=== PATIENT | male | born 1985 | race Caucasian/White ===

== ENCOUNTER 2023-12-04 23:18 | Emergency (ER) | payer OTHER, SELFPAY ==
[2023-12-04 23:20] VITALS: BP 132/94
--- NOTE | 2023-12-05 00:45 | ED.GENMED ---
History of Present Illness
General
Chief Complaint: Heart Rate Problem
Source: patient
Exam Limitations: none
Time Seen by Provider: 12/05/23 00:20
Travel History
Have you had any contact with someone who has COVID-19?: No
Do you have any symptoms of coronavirus? Fever > 100 degrees, chills, cough, shortness of breath, sore throat, loss of taste or smell, muscle aches, or headache?: No
History of Present Illness
History of Present Illness:
See MDM
Past History
Past History
ED Past Medical History: Arrthythmia (palpitations/tachy) and Other (chronic muscle spasm from Lyme's disease)
ED Past Surgical History: None
Social History
Tobacco: Non-smoker
Alcohol: Occasional
Personal:
Living: with family
Employment: Employed
Family History
Family History: Other (Noncontributory)
Phy Exam
Physical Exam
Physical Exam:
See MDM
Course
Orders/Labs/Results
Orders:
Orders
12/04/23 23:24
Electrocardiogram (*1) Urgent
Reason for Study: Palpitations
EKG- Treatment ONCE
12/05/23 00:56
Complete Blood Count/With Diff Urgent
Comprehensive Metabolic Panel Urgent
Magnesium Urgent
Abnormal Lab Results
12/05/23
00:56
MPV 10.7 H fL
(7.4-10.4)
Abs Immat Gran (auto) 0.1 H 10^3/uL
(0-0.05)
Immature Gran % 0.7 H %
(0-0.5)
Glucose 108 H mg/dl
(70-99)
12/05/23 00:56
12/05/23 00:56
Vital Signs
Initial and Last Documented VS:
Initial Vital Signs
Temp Pulse Resp BP Pulse Ox
97.8 F 100 22 132/94 100
12/04/23 23:20 12/04/23 23:20 12/04/23 23:20 12/04/23 23:20 12/04/23 23:20
Last Documented Vital Signs
Temp Pulse Resp BP Pulse Ox
97.8 F 100 22 111/84 95
12/04/23 23:20 12/04/23 23:20 12/04/23 23:20 12/05/23 01:00 12/05/23 01:00
MDM/Problems Addressed
Differential Diagnosis Includes:
HPI and MDM Narrative:
38-year-old male presenting with palpitations. This occurred while he was sitting on the couch. This is not unusual for the patient. Patient states he has been doing this for years and has since followed up with cardiology. He was prescribed
propranolol which she has not yet started. He has had a stress test and an echocardiogram which she states are both negative. Mother at bedside. Both mother and patient acknowledging that there has been more stress recently.
His sole blacker sent him to the emergency department to get an EKG. EKG within normal limits.
I discussed the importance of starting propranolol and following up with his sole blacker. Will obtain basic blood work but discussed likely negative workup. Patient acknowledged
Physical exam
General: Well appearing and non-toxic
HEENT: protecting airway
Neck: appears supple
CV: No evidence of cyanosis. Regular rate and rhythm
Resp: No accessory muscle use. Lungs clear
Abd: Non-distended
Extremities: No deformities
Neuro: alert
Psych: Normal affect
Skin: Intact
Problems Addressed including Acute and Chronic Conditions affecting care:
1. Palpitations
Acuity: acute
Prognosis: stable
Details: Discussed the possibility of an abnormal rhythm such as A-fib. Patient currently in sinus rhythm. Symptoms have improved. Discussed taking his propranolol
Updates
Differential Diagnosis (but not limited to): A-fib, sinus rhythm, SVT, anxiety
Testing considered: D-dimer but no clinical signs of DVT
Drug therapy (if applicable): OTC meds, please see d/c instruction regarding Rx drugs
Amount and/or Complexity of Data Reviewed
Clinical info obtained from: Patient
External data reviewed: N/A
Labs I independently reviewed (but not limited to): Electrolytes within normal limits
Radiology: N/A
Pulse Ox: not hypoxic
EKG independently reviewed: Normal sinus rhythm, normal axis, no STEMI
X Ray Developer: N/A
Critical Care: N/A
Risk of Complication:
Social Determinants of health: Good social support
Discussed with other providers: N/A
Escalation of Care includes Admit/Obs: After being observed in the Emergency Department, pt stable for discharge.
Occasional wrong word or 'sound a like' substitutions may have occurred due to the inherent limitations of voice recognition software. Read the chart carefully and recognize, using context, where substitutions have occurred.
*Critical Care Note
Total Time (30-74mins, 75-104mins- exclusive of procedures): Not Applicable
ED Attending Note
-
Portions of this chart may have been created with voice recognition software.� Occasional wrong word or��sound alike� substitutions may have occurred due to the inherent limitations of voice recognition software.
Discharge Plan
Departure
Patient Disposition: Home (Routine Discharge)
Date of Disposition: 12/05/23
Time of Disposition: 01:27
Patient with high blood pressure during this ER visit?: No
Discharge Problem:
Palpitations
Instructions: Palpitations (DC)
Prescriptions:
No Action
ondansetron 4 MG tablet,disintegrating
4 mg PO QIDPRN PRN (Reason: nausea/vomiting) Qty: 20 0RF
Referrals:
NONE,* [Family Provider] -
Activity Restrictions/Additional Instructions:
As we discussed, please start the propranolol and follow-up with your sole blacker.
Interventions
Interventions:
*Risk Screen - Suicide Last Done: 12/04/23 23:20
*General Assessment Last Done: 12/05/23 01:00
*Neglect/Abuse Screening Last Done: 12/04/23 23:20
*ED COVID-19 Vaccine History Last Done: 12/05/23 01:00
ED- Cardiac Assessment Last Done: 12/05/23 01:00
ED- Pulmonary Assessment Last Done: 12/05/23 01:00
[2023-12-05 00:46] VITALS: BP 117/82
[2023-12-05 01:00] VITALS: BP 111/84; BMI 27.1
[2023-12-05 01:01] LABS: % Basophils 0.7 % (0-2); % Eosinophils 3.3 % (0-6); % Immature Granulocytes 0.7 % (0-0.5); % Lymphocytes 34.3 % (20.5-51.1); % Monocytes 8.2 % (1.7-9.3); % Neutrophils 52.8 % (42.2-75.2); Absolute Basophils 0.1 10^3/uL (0-0.2); Absolute Eosinophils 0.2 10^3/uL (0-0.7); Absolute Immature Granulocytes 0.1 10^3/uL (0-0.05); Absolute Lymphocytes 2.5 10^3/uL (1.2-3.4); Absolute Monocytes 0.6 10^3/uL (0.1-0.6); Absolute Neutrophils 3.8 10^3/uL (1.4-6.5); Hematocrit 41.6 % (39.0-52.0); Hemoglobin 15.2 g/dL (13.0-18.0); Mean Corp Hgb Conc. 36.5 g/dL (33.0-37.0); Mean Corpuscular Hgb 29.5 pg (27.0-31.0); Mean Corpuscular Volume 80.6 fL (80.0-94.0); Mean Platelet Volume 10.7 fL (7.4-10.4); Nucleated Red Blood Cells % 0 % (-); Platelet Count 210 10^3/uL (130-400); Red Blood Cell Count 5.16 10^6/uL (4.70-6.10); Red Cell Dist. Width 12.2 % (11.5-14.5); White Blood Cell Count 7.2 10^3/uL (4.8-10.8)
[2023-12-05 01:24] LABS: ALT (SGPT) 24 U/L (0-50); AST (SGOT) 22 U/L (17-59); Albumin 4.1 g/dl (3.5-5.0); Alkaline Phosphatase 47 U/L (38-126); Blood Urea Nitrogen 16 mg/dl (9-20); Calcium 9.4 mg/dl (8.4-10.2); Carbon Dioxide 27 mmol/L (22-30); Chloride 104 mmol/L (98-107); Estimated Creatinine Clearance 115 ml/min; Glucose 108 mg/dl (70-99); Magnesium 1.9 mg/dl (1.6-2.3); Potassium 4.1 mmol/L (3.5-5.1); Sodium 135 mmol/L (135-145); Total Bilirubin 0.9 mg/dl (0.2-1.3); Total Protein 6.6 g/dl (6.3-8.2); eGFR > 60.00
== END 2023-12-05 01:35 | disposition home or self-care (01) ==
LOC: EMR 23:18
PROVIDERS: EMERGENCY PHYSICIAN Student in an Organized Health Care Education/Training Program
DX: R00.2 Palpitations (principal)
CPT/HCPCS: 99283; 80053; 83735; 85025; 93005

== ENCOUNTER 2024-02-27 16:30 | Emergency (ER) | payer OTHER, SELFPAY ==
[2024-02-27 16:33] VITALS: BP 123/79
[2024-02-27 16:49] LABS: % Basophils 0.7 % (0-2); % Eosinophils 4.7 % (0-6); % Immature Granulocytes 0.7 % (0-0.5); % Lymphocytes 30.4 % (20.5-51.1); % Monocytes 7.2 % (1.7-9.3); % Neutrophils 56.3 % (42.2-75.2); Absolute Basophils 0.1 10^3/uL (0-0.2); Absolute Eosinophils 0.4 10^3/uL (0-0.7); Absolute Immature Granulocytes 0.1 10^3/uL (0-0.05); Absolute Lymphocytes 2.3 10^3/uL (1.2-3.4); Absolute Monocytes 0.6 10^3/uL (0.1-0.6); Absolute Neutrophils 4.3 10^3/uL (1.4-6.5); Hematocrit 43.2 % (39.0-52.0); Hemoglobin 15.5 g/dL (13.0-18.0); Mean Corp Hgb Conc. 35.9 g/dL (33.0-37.0); Mean Corpuscular Hgb 29.9 pg (27.0-31.0); Mean Corpuscular Volume 83.2 fL (80.0-94.0); Mean Platelet Volume 11.2 fL (7.4-10.4); Nucleated Red Blood Cells % 0 % (-); Platelet Count 205 10^3/uL (130-400); Red Blood Cell Count 5.19 10^6/uL (4.70-6.10); Red Cell Dist. Width 12.8 % (11.5-14.5); White Blood Cell Count 7.7 10^3/uL (4.8-10.8)
[2024-02-27 17:02] LABS: ALT (SGPT) 24 U/L (0-50); AST (SGOT) 26 U/L (17-59); Albumin 4.3 g/dl (3.5-5.0); Alkaline Phosphatase 54 U/L (38-126); Blood Urea Nitrogen 17 mg/dl (9-20); Calcium 9.4 mg/dl (8.4-10.2); Carbon Dioxide 29 mmol/L (22-30); Chloride 106 mmol/L (98-107); Glucose 93 mg/dl (70-99); Potassium 3.9 mmol/L (3.5-5.1); Sodium 137 mmol/L (135-145); Total Bilirubin 0.5 mg/dl (0.2-1.3); Total Protein 6.8 g/dl (6.3-8.2); eGFR > 60.00
[2024-02-27 17:14] LABS: Troponin I < 0.012 ng/ml
--- NOTE | 2024-02-27 17:54 | ED.GENMED ---
History of Present Illness
General
Chief Complaint: Heart Rate Problem
Source: patient
Exam Limitations: none
Time Seen by Provider: 02/27/24 17:35
Travel History
Have you had any contact with someone who has COVID-19?: No
Do you have any symptoms of coronavirus? Fever > 100 degrees, chills, cough, shortness of breath, sore throat, loss of taste or smell, muscle aches, or headache?: No
History of Present Illness
History of Present Illness:
38-year-old male otherwise healthy presents with sudden onset of palpitations rapid heart rate lightheadedness while he was sitting in the car as a passenger today. No chest pain or fever. He was wearing a home monitor for about 14 days just took
it off and send it in for recording. He has been seen cardiology for this. He at one point was prescribed metoprolol but admits he has not been using it. It was prescribed as needed and he felt has hasn't needed it. He denies leg swelling or
calf pain.
Past History
Past History
ED Past Medical History: Arrthythmia (palpitations/tachy) and Other (chronic muscle spasm from Lyme's disease)
ED Past Surgical History: None
Social History
Tobacco: Non-smoker
Alcohol: Occasional
Personal:
Living: with family
Employment: Employed
Family History
Family History: Other (Noncontributory)
Phy Exam
Physical Exam
Physical Exam:
General: Well-appearing male no acute respiratory distress
HEENT: Normocephalic atraumatic neck is supple
Heart: Regular rate and rhythm no murmurs
Lungs: Clear no wheeze or rales
Extremities: No cyanosis or calf tenderness
Course
Orders/Labs/Results
Orders:
Orders
02/27/24 16:37
Electrocardiogram (*1) Urgent
Reason for Study: Tachycardia
EKG- Treatment ONCE
02/27/24 16:43
CMP [Comprehensive Metabolic Panel] Urgent
Complete Blood Count/With Diff Urgent
TSH Reflex To Free T4 Urgent
Comment: ADD ON
Troponin I Urgent
02/27/24 17:53
Add On- LAB Urgent
Tests Added?: tsh reflex to t4
Abnormal Lab Results
02/27/24
16:43
MPV 11.2 H fL
(7.4-10.4)
Abs Immat Gran (auto) 0.1 H 10^3/uL
(0-0.05)
Immature Gran % 0.7 H %
(0-0.5)
02/27/24 16:43
02/27/24 16:43
Vital Signs
Initial and Last Documented VS:
Initial Vital Signs
Temp Pulse Resp BP Pulse Ox
98.4 F 78 18 123/79 100
02/27/24 16:33 02/27/24 16:33 02/27/24 16:33 02/27/24 16:33 02/27/24 16:33
Last Documented Vital Signs
Temp Pulse Resp BP Pulse Ox
98.4 F 85 15 123/79 100
02/27/24 16:33 02/27/24 18:30 02/27/24 18:30 02/27/24 16:33 02/27/24 16:33
MDM/Problems Addressed
Differential Diagnosis Includes:
Palpitations. Consider arrhythmia electrolyte abnormality thyroid disorder
Will check labs. EKG here shows sinus rhythm without ischemic changes. Patient was seen by cardiology in the room here. At this point patient not feeling his palpitations.
*Critical Care Note
Total Time (30-74mins, 75-104mins- exclusive of procedures): Not Applicable
Update Note
Update Note:
TSH normal. No arrhythmias noted on monitor. Patient will be advised to follow-up with his fur dresser. He will be advised to take his beta-paula that was prescribed. Stable for discharge
ED Attending Note
-
Portions of this chart may have been created with voice recognition software.� Occasional wrong word or��sound alike� substitutions may have occurred due to the inherent limitations of voice recognition software.
Discharge Plan
Departure
Patient Disposition: Home (Routine Discharge)
Date of Disposition: 02/27/24
Time of Disposition: 19:21
Patient with high blood pressure during this ER visit?: No
Discharge Problem:
Palpitations
Instructions: Palpitations (DC)
Prescriptions:
No Action
ondansetron 4 MG tablet,disintegrating
4 mg PO QIDPRN PRN (Reason: nausea/vomiting) Qty: 20 0RF
Referrals:
NONE,* [Family Provider] -
Activity Restrictions/Additional Instructions:
Please start your beta-puala as prescribed. Return for worsening symptoms otherwise follow-up with your fur dresser
Interventions
Interventions:
*Risk Screen - Suicide Last Done: 02/27/24 17:21
*General Assessment Last Done: 02/27/24 17:21
*Neglect/Abuse Screening Last Done: 02/27/24 17:21
ED- Fall Risk Assessment Last Done: 02/27/24 17:21
*ED COVID-19 Vaccine History Last Done: 02/27/24 17:21
ED- Cardiac Assessment Last Done: 02/27/24 17:21
ED- Pulmonary Assessment Last Done: 02/27/24 17:21
Discharge Date and Time
Print Language: [place]
[2024-02-27 18:49] LABS: TSH Reflex To Free T4 0.48 uIU/ml (0.47-4.68)
== END 2024-02-27 19:58 | disposition home or self-care (01) ==
LOC: EMR 16:30
PROVIDERS: Emergency Medicine; EMERGENCY PHYSICIAN Emergency Medicine
DX: R00.2 Palpitations (principal)
CPT/HCPCS: 99283; 80053; 84443; 84484; 85025; 93005

== ENCOUNTER 2024-03-27 14:20 | Emergency (ER) | payer OTHER, SELFPAY ==
[2024-03-27 14:30] VITALS: BP 116/80
[2024-03-27 14:47] LABS: % Eosinophils 8.7 % (0-6); % Immature Granulocytes 0.7 % (0-0.5); % Lymphocytes 31.3 % (20.5-51.1); % Monocytes 9.1 % (1.7-9.3); % Neutrophils 49.2 % (42.2-75.2); Absolute Basophils 0.1 10^3/uL (0-0.2); Absolute Eosinophils 0.6 10^3/uL (0-0.7); Absolute Immature Granulocytes 0.1 10^3/uL (0-0.05); Absolute Lymphocytes 2.3 10^3/uL (1.2-3.4); Absolute Monocytes 0.7 10^3/uL (0.1-0.6); Absolute Neutrophils 3.6 10^3/uL (1.4-6.5); Hemoglobin 16.1 g/dL (13.0-18.0); Mean Corpuscular Hgb 29.3 pg (27.0-31.0); Mean Corpuscular Volume 83.8 fL (80.0-94.0); Mean Platelet Volume 11.5 fL (7.4-10.4); Nucleated Red Blood Cells % 0 % (-); Platelet Count 201 10^3/uL (130-400); Red Blood Cell Count 5.49 10^6/uL (4.70-6.10); Red Cell Dist. Width 12.2 % (11.5-14.5); White Blood Cell Count 7.2 10^3/uL (4.8-10.8)
[2024-03-27 15:04] LABS: ALT (SGPT) 42 U/L (0-50); AST (SGOT) 29 U/L (17-59); Albumin 4.5 g/dl (3.5-5.0); Alkaline Phosphatase 54 U/L (38-126); Blood Urea Nitrogen 11 mg/dl (9-20); Calcium 9.8 mg/dl (8.4-10.2); Carbon Dioxide 27 mmol/L (22-30); Chloride 103 mmol/L (98-107); Glucose 105 mg/dl (70-99); Potassium 4.5 mmol/L (3.5-5.1); Sodium 137 mmol/L (135-145); Total Protein 7.1 g/dl (6.3-8.2); eGFR > 60.00
[2024-03-27 15:14] LABS: Troponin I < 0.012 ng/ml
[2024-03-27 17:13] VITALS: BP 111/98; BP 118/79; BP 125/96; PULSE 76; PULSE 81; PULSE 93
[2024-03-27 17:19] VITALS: BMI 26.9
--- NOTE | 2024-03-27 18:08 | ED.GENMED ---
History of Present Illness
General
Chief Complaint: Heart Rate Problem
Source: patient and family
Time Seen by Provider: 03/27/24 16:51
Travel History
Have you had any contact with someone who has COVID-19?: No
Do you have any symptoms of coronavirus? Fever > 100 degrees, chills, cough, shortness of breath, sore throat, loss of taste or smell, muscle aches, or headache?: No
History of Present Illness
History of Present Illness:
this is a 39yo male who presents with palpitations. the pt has been dealing with this for more than 1 month. Patient is seen cardiology. 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 Patient states he has been checking his heart rate
frequently on his watch and his phone jose. He states sometimes heart rate gets up to 130. He does present strips on his phone but his heart rate is only about 100. Patient currently denies any symptoms. He states that today his symptoms
persisted. He does reportedly have a history of Lyme's. He was offered a cath for EP evaluation but is debating on it. He does note that he frequently gets PVCs. He also had a Holter monitor but does not know the results.
Past History
Past History
ED Past Medical History: Arrthythmia (palpitations/tachy) and Other (chronic muscle spasm from Lyme's disease)
ED Past Surgical History: None
Social History
Tobacco: Non-smoker
Alcohol: Occasional
Personal:
Living: with family
Employment: Employed
Family History
Family History: Other (Noncontributory)
Phy Exam
Physical Exam
Physical Exam:
CONSTITUTIONAL Patient alert and oriented to person, place and time. Well-appearing. Vital signs reviewed.
HEAD atraumatic, normocephalic.
EYES eyelids normal to inspection, Pupils equally round and reactive to light, Extraocular muscles intact, Conjunctiva normal, Sclera normal.
NECK normal range of motion, Trachea midline, no jugular venous distention.
RESPIRATORY CHEST No respiratory distress noted, Chest expansion equal, Bilateral breath sounds clear.
CARDIOVASCULAR regular rate and rhythm, Heart sounds normal.
BACK normal inspection, no obvious deformities
UPPER EXTREMITY range of motion normal, Motor strength normal, no cyanosis, no edema.
LOWER EXTREMITY range of motion normal, Motor strength normal, no cyanosis, no edema.
NEURO Speech normal, No focal motor deficits, [place] coma scale 15, Memory normal, Cranial Nerves intact to screening exam.
SKIN skin warm, dry, and normal in color.
PSYCHIATRIC patient oriented to person place and time, Normal affect.
Course
Orders/Labs/Results
Orders:
Orders
03/27/24
Electrocardiogram (*1) Stat
Comment: DONE EMR
03/27/24 14:24
EKG with chest pain [ECG as needed] As Directed
ECG as needed for:: Chest Pain
03/27/24 14:40
Complete Blood Count/With Diff Urgent
Comprehensive Metabolic Panel Urgent
Troponin I Urgent
Abnormal Lab Results
03/27/24
14:40
MPV 11.5 H fL
(7.4-10.4)
Abs Immat Gran (auto) 0.1 H 10^3/uL
(0-0.05)
Absolute Monos (auto) 0.7 H 10^3/uL
(0.1-0.6)
Immature Gran % 0.7 H %
(0-0.5)
Eosinophils % 8.7 H %
(0-6)
Glucose 105 H mg/dl
(70-99)
03/27/24 14:40
03/27/24 14:40
Vital Signs
Initial and Last Documented VS:
Initial Vital Signs
Temp Pulse Resp BP Pulse Ox
98 F 81 18 116/80 100
03/27/24 14:30 03/27/24 14:30 03/27/24 14:30 03/27/24 14:30 03/27/24 14:30
Last Documented Vital Signs
Temp Pulse Resp BP Pulse Ox
98 F 81 18 116/80 98
03/27/24 14:30 03/27/24 14:30 03/27/24 14:30 03/27/24 14:30 03/27/24 17:00
MDM/Problems Addressed
MDM/Problems Addressed:
Palpitations
*Pulse Oximetry
Patient hypoxic: no
*EKG
Interpreted by ED Provider?: Yes
Interpretation: normal
Rate: normal
Rhythm: sinus
[place]: normal axis
QRS Pattern: normal QRS
Ischemia: no ischemia
*Pipelines Manager Interpretation
Rate: normal
Interpretation: normal
Rhythm: sinus
*Critical Care Note
Total Time (30-74mins, 75-104mins- exclusive of procedures): Not Applicable
Data Reviewed
Source: patient and family
Prescriptions/Medications Considered But Not Given:
considered Beta paula but nsr on tele
Patient Management
Escalation/DeEscalation of care consider admission/obs:
pt appears well. pt is hyper concerned about his palpitations but is unable to produce anything that shows any concerning arrhythmias. Occasional PVCs. Is being followed by electrophysiology. Okay for discharge
ED Attending Note
-
Portions of this chart may have been created with voice recognition software.� Occasional wrong word or��sound alike� substitutions may have occurred due to the inherent limitations of voice recognition software.
Discharge Plan
Departure
Patient Disposition: Home (Routine Discharge)
Date of Disposition: 03/27/24
Time of Disposition: 18:09
Patient with high blood pressure during this ER visit?: No
Discharge Problem:
Palpitations
Instructions: Palpitations (DC)
Prescriptions:
No Action
propranolol 20 mg Tablet
20 mg PO QPM
Boswellia Zyme
1 tab PO DAILY
Curcumin
1 tab PO DAILY
vitamin D3-vitamin K2
62.6 mcg PO DAILY
Referrals:
Paige Moran MD [Family Provider] -
Activity Restrictions/Additional Instructions:
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 Return immediately for passing out episode, chest pain, shortness of breath or any other concerns.
Interventions
Interventions:
*Risk Screen - Suicide Last Done: 03/27/24 17:17
*General Assessment Last Done: 03/27/24 17:17
*Neglect/Abuse Screening Last Done: 03/27/24 17:17
ED- Fall Risk Assessment Last Done: 03/27/24 18:36
*ED COVID-19 Vaccine History Last Done: 03/27/24 17:17
*Nursing Disposition Last Done: 03/27/24 18:36
ED- Cardiac Assessment Last Done: 03/27/24 17:00
ED- Pulmonary Assessment Last Done: 03/27/24 17:00
Discharge Date and Time
Discharge Date/Time: 03/27/24 18:36
Print Language: [id number]
== END 2024-03-27 18:36 | disposition home or self-care (01) ==
LOC: EMR 14:20
PROVIDERS: Emergency Medicine; EMERGENCY PHYSICIAN Emergency Medicine; FAMILY PHYSICIAN Internal Medicine Cardiovascular Disease
DX: R00.2 Palpitations (principal)
CPT/HCPCS: 99283; 80053; 84484; 85025; 93005

== ENCOUNTER → 2024-04-04 13:12 | Outpatient (REF) | payer OTHER, SELFPAY | LOC: RCS 13:12 | PROVIDERS: ATTENDING PHYSICIAN Internal Medicine Cardiovascular Disease; FAMILY PHYSICIAN Family Medicine | DX: R07.9 Chest pain, unspecified (principal) | CPT/HCPCS: 93017 ==

== ENCOUNTER 2024-04-04 16:37 | Emergency (ER) | payer OTHER, SELFPAY ==
[2024-04-04 16:38] VITALS: BP 126/91
[2024-04-04 17:05] LABS: % Basophils 0.8 % (0-2); % Eosinophils 4.1 % (0-6); % Immature Granulocytes 0.6 % (0-0.5); % Lymphocytes 28.4 % (20.5-51.1); % Monocytes 6.5 % (1.7-9.3); % Neutrophils 59.6 % (42.2-75.2); Absolute Basophils 0.1 10^3/uL (0-0.2); Absolute Eosinophils 0.4 10^3/uL (0-0.7); Absolute Immature Granulocytes 0.1 10^3/uL (0-0.05); Absolute Lymphocytes 2.5 10^3/uL (1.2-3.4); Absolute Monocytes 0.6 10^3/uL (0.1-0.6); Absolute Neutrophils 5.3 10^3/uL (1.4-6.5); Hematocrit 41.9 % (39.0-52.0); Hemoglobin 15.7 g/dL (13.0-18.0); Mean Corp Hgb Conc. 37.5 g/dL (33.0-37.0); Mean Corpuscular Hgb 29.8 pg (27.0-31.0); Mean Corpuscular Volume 79.7 fL (80.0-94.0); Mean Platelet Volume 10.9 fL (7.4-10.4); Nucleated Red Blood Cells % 0 % (-); Platelet Count 226 10^3/uL (130-400); Red Blood Cell Count 5.26 10^6/uL (4.70-6.10); White Blood Cell Count 8.8 10^3/uL (4.8-10.8)
[2024-04-04 17:15] VITALS: BP 124/87
[2024-04-04 17:18] LABS: AST (SGOT) 20 U/L (17-59); Albumin 4.5 g/dl (3.5-5.0); Blood Urea Nitrogen 14 mg/dl (9-20); Carbon Dioxide 23 mmol/L (22-30); Glucose 97 mg/dl (70-99); Potassium 3.9 mmol/L (3.5-5.1); Total Bilirubin 1.4 mg/dl (0.2-1.3); Total Protein 6.9 g/dl (6.3-8.2); eGFR > 60.00
[2024-04-04 17:26] LABS: ALT (SGPT) 18 U/L (0-50); Alkaline Phosphatase 53 U/L (38-126)
[2024-04-04 17:29] LABS: Troponin I < 0.012 ng/ml
[2024-04-04 17:39] LABS: Chloride 104 mmol/L (98-107); Sodium 137 mmol/L (135-145)
[2024-04-04 18:00] VITALS: BP 111/74
--- NOTE | 2024-04-04 18:35 | ED.GENMED ---
History of Present Illness
General
Chief Complaint: Heart Rate Problem
Source: patient, records and spouse
Time Seen by Provider: 04/04/24 18:18
Travel History
Have you had any contact with someone who has COVID-19?: No
Do you have any symptoms of coronavirus? Fever > 100 degrees, chills, cough, shortness of breath, sore throat, loss of taste or smell, muscle aches, or headache?: No
History of Present Illness
History of Present Illness:
39-year-old male with past medical history of tachyarrhythmia presenting to the emergency department for evaluation of sudden onset palpitations that occurred while he was outside working in his yard similar to multiple previous episodes however
patient states today his heart rate went up as high as 190 which is the highest its ever been. He has been worked up by electrophysiology and was recommended to have an ablation procedure which was scheduled for this coming week however patient
canceled it because he was concerned about the procedure itself. He had a stress test today and is scheduled for an echocardiogram as well next week and states the stress went off without any issues although did note his heart rate stayed around
120 bpm for a while after the test. He states that he takes propranolol 40 mg daily. Notes symptoms seem to be worse when going from sitting or laying to standing. Denies any syncopal episodes. Presently asymptomatic.
Past History
Past History
ED Past Medical History: Arrthythmia (palpitations/tachy) and Other (chronic muscle spasm from Lyme's disease)
ED Past Surgical History: None
Social History
Tobacco: Non-smoker
Alcohol: Occasional
Drug: None
Personal:
Living: with family
Employment: Employed
Family History
Family History: Other (Noncontributory)
Review of Systems
Review of Systems
All Other Systems: ROS reviewed and negative except as documented in HPI and ROS
Phy Exam
Physical Exam
Physical Exam:
GENERAL: Alert , in no apparent distress
EYE: conjunctiva clear
NECK: Supple
ENT: o/p clr, mmm.
CARDIAC: Regular rate and rhythm
LUNGS: Clear breath sounds bilaterally, no acute respiratory distress, no wheezes/rales/rhonchi
NEUROLOGICAL: Alert and oriented
SKIN: Warm and dry, skin intact.
MUSCULOSKELETAL: well perfused.
PSYCH: Normal and appropriate interaction.
Scores
Heart Failure Risk
Heart Failure Risk Score: Not Applicable
Heart Score for Chest Pain Patients
STEMI patient?: Not applicable
Withdrawal Assessment of Alcohol
Withdrawal Assessment Completed?: Not applicable
Course
Orders/Labs/Results
Orders:
Orders
04/04/24 16:37
EKG [Electrocardiogram (*1)] Urgent
Reason for Study: Palpitations
04/04/24 16:38
EKG- Treatment ONCE
04/04/24 16:53
Complete Blood Count/With Diff Urgent
Comprehensive Metabolic Panel Urgent
Troponin I Urgent
04/04/24 18:45
Urinalysis Reflex To Culture Urgent
Date Specimen was Collected: 04/04/24
Time Specimen was Collected: 18:41
Abnormal Lab Results
04/04/24 04/04/24
16:53 18:45
MCV 79.7 L fL
(80.0-94.0)
MCHC 37.5 H g/dL
(33.0-37.0)
MPV 10.9 H fL
(7.4-10.4)
Abs Immat Gran (auto) 0.1 H 10^3/uL
(0-0.05)
Immature Gran % 0.6 H %
(0-0.5)
Total Bilirubin 1.4 H mg/dl
(0.2-1.3)
Urine Ketones 3+ A
(Negative)
04/04/24 16:53
04/04/24 16:53
Vital Signs
Initial and Last Documented VS:
Initial Vital Signs
Temp Pulse Resp BP Pulse Ox
99.3 F 112 18 126/91 99
04/04/24 16:38 04/04/24 16:38 04/04/24 16:38 04/04/24 16:38 04/04/24 16:38
Last Documented Vital Signs
Temp Pulse Resp BP Pulse Ox
99.3 F 76 17 111/74 98
04/04/24 16:38 04/04/24 18:30 04/04/24 18:30 04/04/24 18:00 04/04/24 18:30
MDM/Problems Addressed
Differential Diagnosis Includes:
POTS, anxiety, cardiac dysrhythmia, valvular dysfunction, I do not have concern for an ACS presentation
MDM/Problems Addressed:
39-year-old male presenting to the emergency department for evaluation of palpitations with elevated heart rate. Is undergone extent up with cardiology and has been seen multiple times in this ED for similar. At time of my exam patient's heart
rate is persistently between 70 and 80 bpm and he is in no acute distress. There is a noted history for Lyme's disease however I do not have suspicion for active Lyme's nor cardiac dysrhythmia caused by Lyme. Patient states that his EP doctor felt
that his symptoms were possibly related to 3 different diagnoses including POTS, anxiety or SVT. He was given a prescription for Klonopin however has yet to take this. At present time patient's symptoms appear to be fully resolved and he is
hemodynamically stable. Labs are unremarkable. Patient did note that intermittently he will have a fullness sensation in the upper part of his abdomen/chest after urinating so we will send a urinalysis although I do not have any suspicion that
this is correlated with his present symptoms. Patient is stable for discharge home and encourage close follow-up with his EP team.
Chronic conditions affecting care: Arrhythmia (Palpitations)
Acute Exacerbation and/or Progression of Chronic Illness: Arrhythmia
*Pulse Oximetry
Patient hypoxic: no
*EKG
Interpreted by ED Provider?: Yes
Comparison EKG: no changes
Heart Rate: 103
Rate: tachycardiac
Rhythm: sinus
[place]: normal axis
Ischemia: no ischemia
*Dental Instrument Maker Interpretation
Rate: normal
Rhythm: sinus
*Critical Care Note
Total Time (30-74mins, 75-104mins- exclusive of procedures): Not Applicable
Data Reviewed
Review of Other/Old Records Reveals: Labs and Records
Source: patient and records
Patient Management
Social determinants of health affecting care: Other (Already arranged outpatient follow-up visits)
ED Attending Note
-
Portions of this chart may have been created with voice recognition software.� Occasional wrong word or��sound alike� substitutions may have occurred due to the inherent limitations of voice recognition software.
Discharge Plan
Departure
Patient Disposition: Home (Routine Discharge)
Date of Disposition: 04/04/24
Time of Disposition: 18:35
Patient with high blood pressure during this ER visit?: No
Discharge Problem:
Palpitations
Instructions: Palpitations (DC)
Prescriptions:
No Action
propranolol 20 mg Tablet
20 mg PO QPM
Boswellia Zyme
1 tab PO DAILY
Curcumin
1 tab PO DAILY
vitamin D3-vitamin K2
62.6 mcg PO DAILY
Referrals:
Lydia Parker DO [Family Provider] -
Paige Moran MD [Active] -
Interventions
Interventions:
*Risk Screen - Suicide Last Done: 04/04/24 17:18
*General Assessment Last Done: 04/04/24 16:38
*Neglect/Abuse Screening Last Done: 04/04/24 17:18
ED- Fall Risk Assessment Last Done: 04/04/24 18:51
*ED COVID-19 Vaccine History Last Done: 04/04/24 16:38
*Nursing Disposition Last Done: 04/04/24 18:51
ED- Cardiac Assessment Last Done: 04/04/24 17:18
ED- Pulmonary Assessment Last Done: 04/04/24 17:18
Discharge Date and Time
Discharge Date/Time: 04/04/24 18:51
Print Language: [place] LUCI[place]
[2024-04-04 18:52] LABS: Urine Albumin Negative (Neg - Trace); Urine Bilirubin Negative (Negative); Urine Character Clear (Clear); Urine Color Yellow; Urine Glucose Negative (Negative); Urine Ketone 3+ (Negative); Urine Leukocyte Negative (Negative); Urine Nitrite Negative (Negative); Urine Occult Blood Negative (Negative); Urine Urobilinogen Negative (Neg - 1+)
== END 2024-04-04 18:51 | disposition home or self-care (01) ==
LOC: EMR 16:37
PROVIDERS: Emergency Medicine; Physician Assistant Medical; EMERGENCY PHYSICIAN Emergency Medicine; FAMILY PHYSICIAN Family Medicine
DX: R00.2 Palpitations (principal)
CPT/HCPCS: 99285; 93017; 80053; 81003; 84484; 85025; 93005

== ENCOUNTER 2024-04-06 20:27 | Emergency (ER) | payer OTHER, SELFPAY ==
[2024-04-06 20:28] VITALS: BP 141/95
[2024-04-06 20:47] VITALS: BP 138/90
[2024-04-06 21:16] LABS: % Basophils 0.8 % (0-2); % Eosinophils 5.7 % (0-6); % Immature Granulocytes 0.4 % (0-0.5); % Lymphocytes 37.1 % (20.5-51.1); % Monocytes 8.5 % (1.7-9.3); % Neutrophils 47.5 % (42.2-75.2); Absolute Basophils 0.1 10^3/uL (0-0.2); Absolute Eosinophils 0.5 10^3/uL (0-0.7); Absolute Lymphocytes 3.2 10^3/uL (1.2-3.4); Absolute Monocytes 0.7 10^3/uL (0.1-0.6); Absolute Neutrophils 4.1 10^3/uL (1.4-6.5); Hematocrit 41.6 % (39.0-52.0); Hemoglobin 15.4 g/dL (13.0-18.0); Mean Corpuscular Hgb 29.4 pg (27.0-31.0); Mean Corpuscular Volume 79.4 fL (80.0-94.0); Mean Platelet Volume 11.2 fL (7.4-10.4); Nucleated Red Blood Cells % 0 % (-); Platelet Count 214 10^3/uL (130-400); Red Blood Cell Count 5.24 10^6/uL (4.70-6.10); Red Cell Dist. Width 11.9 % (11.5-14.5); White Blood Cell Count 8.5 10^3/uL (4.8-10.8)
[2024-04-06 21:30] LABS: ALT (SGPT) 13 U/L (0-50); AST (SGOT) 20 U/L (17-59); Albumin 4.4 g/dl (3.5-5.0); Alkaline Phosphatase 51 U/L (38-126); Blood Urea Nitrogen 11 mg/dl (9-20); Calcium 9.9 mg/dl (8.4-10.2); Carbon Dioxide 21 mmol/L (22-30); Chloride 106 mmol/L (98-107); Glucose 81 mg/dl (70-99); Potassium 3.7 mmol/L (3.5-5.1); Sodium 138 mmol/L (135-145); Total Bilirubin 1.1 mg/dl (0.2-1.3); Total Protein 6.9 g/dl (6.3-8.2); eGFR > 60.00
[2024-04-06] MEDS: NSS 1000 IV (21:55)
[2024-04-06] MEDS: XANAX 0.5 MG PO (21:55)
[2024-04-06 22:00] VITALS: BP 129/80
--- NOTE | 2024-04-06 22:34 | ED.GENMED ---
History of Present Illness
General
Chief Complaint: Cardiac Symptoms
Source: patient and family
Exam Limitations: none
Time Seen by Provider: 04/06/24 21:00
Nursing documentation reviewed up to this point in time: agreed with
Travel History
Have you had any contact with someone who has COVID-19?: No
Do you have any symptoms of coronavirus? Fever > 100 degrees, chills, cough, shortness of breath, sore throat, loss of taste or smell, muscle aches, or headache?: No
History of Present Illness
History of Present Illness:
39-year-old male past medical history of POTS Lyme disease presenting to the emergency department today with tingling palpitations shakiness lightheadedness throughout the day today. Has had this many times in the past. Has followed closely with
cardiology does take a beta-paula and also was prescribed Klonopin that he has not been taking. Denies any specific chest pain any recent injury or trauma.
Past History
Past History
ED Past Medical History: Arrthythmia (palpitations/tachy) and Other (chronic muscle spasm from Lyme's disease)
ED Past Surgical History: None
Social History
Tobacco: Non-smoker
Alcohol: Occasional
Drug: None
Personal:
Living: with family
Employment: Employed
Family History
Family History: Other (Noncontributory)
Review of Systems
Review of Systems
Allergies reviewed?: Yes
All Other Systems: ROS reviewed and negative except as documented in HPI and ROS
Phy Exam
Physical Exam
Physical Exam:
GENERAL: Alert , in no apparent distress
EYE: pupils equal and reactive
NECK: Supple, no significant adenopathy.
ENT: o/p clr, mmm.
CARDIAC: Regular rate and rhythm .
LUNGS: Clear breath sounds bilaterally, no acute respiratory distress, no wheezes/rales/rhonchi
ABDOMEN: Soft, without focal tenderness, no r/g, no cvat
NEUROLOGICAL: Alert and oriented, no focal neuro deficits 5 out of 5 upper and lower extremity strength normal sensation with palpating bilaterally normal finger-nose [id number] no pronator drift
SKIN: Warm and dry, skin intact.
MUSCULOSKELETAL: No edema, well perfused.
PSYCH: Normal and appropriate interaction.
Course
Orders/Labs/Results
Orders:
Orders
04/06/24 20:33
Electrocardiogram (*1) Urgent
Reason for Study: Tachycardia
EKG- Treatment ONCE
04/06/24 21:09
CMP [Comprehensive Metabolic Panel] Urgent
Complete Blood Count/With Diff Urgent
04/06/24 21:44
Alprazolam [Xanax] 0.5 mg PO NOW STA
04/06/24 21:45
0.9% Sodium Chloride 1000 ml [Nss] 1,000 ml IV BOLUS
Abnormal Lab Results
04/06/24
21:09
MCV 79.4 L fL
(80.0-94.0)
MPV 11.2 H fL
(7.4-10.4)
Absolute Monos (auto) 0.7 H 10^3/uL
(0.1-0.6)
Carbon Dioxide 21 L mmol/L
(22-30)
04/06/24 21:09
04/06/24 21:09
Vital Signs
Initial and Last Documented VS:
Initial Vital Signs
Temp Pulse Resp BP Pulse Ox
98.1 F 84 24 141/95 100
04/06/24 20:28 04/06/24 20:28 04/06/24 20:28 04/06/24 20:28 04/06/24 20:28
Last Documented Vital Signs
Temp Pulse Resp BP Pulse Ox
98.1 F 78 18 129/80 99
04/06/24 20:28 04/06/24 22:00 04/06/24 22:00 04/06/24 22:00 04/06/24 22:00
MDM/Problems Addressed
MDM/Problems Addressed:
39-year-old male presenting to the emergency department today with concerns of tingling palpitations lightheadedness shakiness throughout the day today. Arrival here vital signs are normal patient no obvious distress normal neurologic evaluation
normal heart and lung exam labs unremarkable EKG normal. Patient here generally well-appearing no events on the monitor for multiple hours vital signs throughout stay were normal labs unremarkable does not appear to have any immediate
life-threatening problems advised for close outpatient follow-up.
*Critical Care Note
Total Time (30-74mins, 75-104mins- exclusive of procedures): Not Applicable
ED Attending Note
-
Portions of this chart may have been created with voice recognition software.� Occasional wrong word or��sound alike� substitutions may have occurred due to the inherent limitations of voice recognition software.
Discharge Plan
Departure
Patient Disposition: Home (Routine Discharge)
Date of Disposition: 04/06/24
Time of Disposition: 23:36
Patient with high blood pressure during this ER visit?: No
Condition: Good
Covid-19: Not Applicable
Discharge Problem:
Palpitations
Instructions: Palpitations
Prescriptions:
No Action
propranolol 20 mg Tablet
20 mg PO QPM
Boswellia Zyme
1 tab PO DAILY
Curcumin
1 tab PO DAILY
vitamin D3-vitamin K2
62.6 mcg PO DAILY
Referrals:
Paige Moran MD [Family Provider] -
Activity Restrictions/Additional Instructions:
You came to the emergency department today with multiple symptoms. Here had reassuring assessment. Please follow closely with your outpatient doctors. Return to the emergency department any worsening, new or concerning symptoms
Interventions
Interventions:
*Risk Screen - Suicide Last Done: 04/06/24 20:28
*General Assessment Last Done: 05/26/24 21:25
*Neglect/Abuse Screening Last Done: 04/06/24 20:28
ED- Fall Risk Assessment Last Done: 04/06/24 21:25
*ED COVID-19 Vaccine History Last Done: 04/06/24 21:25
ED- Pulmonary Assessment Last Done: 04/06/24 21:25
ED- Cardiac Assessment Last Done: 04/06/24 21:25
Discharge Date and Time
Print Language: HONDURAN
[2024-04-06 23:00] VITALS: BP 114/73
== END 2024-04-06 23:54 | disposition home or self-care (01) ==
LOC: EMR 20:27
PROVIDERS: EMERGENCY PHYSICIAN Emergency Medicine; FAMILY PHYSICIAN Internal Medicine Cardiovascular Disease
DX: R00.2 Palpitations (principal)
CPT/HCPCS: 99284; 96360; 80053; 85025; 93005

== ENCOUNTER 2024-04-25 06:08 | Day surgery (SDC) | payer OTHER, SELFPAY ==
[2024-03-25 10:08] VITALS: BMI 26.3
[2024-03-25 10:35] LABS: % Basophils 1.4 % (0-2); % Eosinophils 9.6 % (0-6); % Immature Granulocytes 0.9 % (0-0.5); % Lymphocytes 38.5 % (20.5-51.1); % Monocytes 8.2 % (1.7-9.3); % Neutrophils 41.4 % (42.2-75.2); Absolute Basophils 0.1 10^3/uL (0-0.2); Absolute Eosinophils 0.6 10^3/uL (0-0.7); Absolute Immature Granulocytes 0.1 10^3/uL (0-0.05); Absolute Lymphocytes 2.3 10^3/uL (1.2-3.4); Absolute Monocytes 0.5 10^3/uL (0.1-0.6); Absolute Neutrophils 2.4 10^3/uL (1.4-6.5); Hematocrit 46.3 % (39.0-52.0); Hemoglobin 15.8 g/dL (13.0-18.0); Mean Corp Hgb Conc. 34.1 g/dL (33.0-37.0); Mean Platelet Volume 12.2 fL (7.4-10.4); Nucleated Red Blood Cells % 0 % (-); Platelet Count 185 10^3/uL (130-400); Red Blood Cell Count 5.45 10^6/uL (4.70-6.10); Red Cell Dist. Width 12.5 % (11.5-14.5); White Blood Cell Count 5.8 10^3/uL (4.8-10.8)
[2024-03-25 10:45] LABS: ALT (SGPT) 24 U/L (0-50); AST (SGOT) 25 U/L (17-59); Albumin 4.4 g/dl (3.5-5.0); Alkaline Phosphatase 50 U/L (38-126); Blood Urea Nitrogen 15 mg/dl (9-20); Calcium 9.9 mg/dl (8.4-10.2); Carbon Dioxide 28 mmol/L (22-30); Chloride 103 mmol/L (98-107); Estimated Creatinine Clearance > 125 ml/min; Glucose 101 mg/dl (70-99); Potassium 4.1 mmol/L (3.5-5.1); Sodium 140 mmol/L (135-145); Total Bilirubin 1.1 mg/dl (0.2-1.3); eGFR > 60.00
--- NOTE | 2024-03-25 15:37 | HPS.HSE ---
Family Physician
-
Family Physician: Sheng Kebede
Chief Complaint
-
Palpitations. Dyspnea.
History of Present Illness
The patient is a 38 year old male presenting today for recurrent palpitations with associated dyspnea. He was first evaluated for his palpitations by Dr. Cotter in 2017. Previous EKGs have demonstrated no signs of conduction disease. He
does have a Kardia device which has recorded possible atrial tachycardia versus sinus tachycardia. A recent 10-day Holter monitor in late January primarily demonstrated normal sinus rhythm with a low burden of PVCs and PACs. His previous
echocardiogram and nuclear stress test were also, reportedly, normal. It is recommended he proceed with an EP study at this time given his ongoing symptoms. His symptoms are, visibly, affecting his overall quality of life. He denies any current
complaints today such as chest pain, shortness of breath at rest, nausea, vomiting, diarrhea, lightheadedness, dizziness, cough, sore throat, or fever.
Medical History
Past Medical History
Past Medical History: Reports Other
Additional Past Medical History:
1. Palpitations, controlled with Propranolol.
2. Dyspnea.
3. Hyperlipidemia.
4. Postural orthostatic tachycardia syndrome.
5. PVCs and PACs.
6. Lumbar degenerative disc disease.
7. Arthritis.
8. Anxiety.
9. Recurrent lyme disease.
Past Surgical History: Reports Other
Additional Past Surgical History:
Endoscopy.
Social History
Tobacco: Non-smoker
Alcohol: None
Living: Other (He lives is a carriage home on his parent's property. )
Family History
Family History: Not pertinent
Allergies / Home Medications
Allergy/Medication List:
Home medications:
1. Boswellia Zyme 1 tablet p.o. daily.
2. Curcumin 1 tablet p.o. daily.
3. Propranolol 20 mg p.o. every evening.
4. Vitamin D3-K2 62.6 mcg p.o. daily.
Allergies: No known allergies.
Review of Systems
-
A 12 point ROS was completed and negative except as noted: Yes
Physical Exam
Vital Signs
Blood pressure 125/88. Heart rate 88. Respirations 18. Pulse ox 100% on room air.
Height 6 feet, 1 inch. Weight 90.3 kg. BMI 26.3.
Physical Exam
General: Well Developed, Well Nourished and No Apparent Distress
HEENT: NormoCephalic, Moist mucous membranes, Atraumatic and PERRLA
Respiratory: Clear
Cardiac: Regular Rhythm
GI: Soft, Non Tender and Non Distended
Musculoskeletal: Normal Gait & Station
Skin: Warm and Dry
Neuro: AO x 3 and Nonfocal/grossly intact
Psych: Anxious
Laboratory Results
-
03/25/24 10:13
03/25/24 10:13
Laboratory Results
Total Bilirubin 1.1 mg/dl (0.2-1.3) 03/25/24 10:13
AST 25 U/L (17-59) 03/25/24 10:13
ALT 24 U/L (0-50) 03/25/24 10:13
Alkaline Phosphatase 50 U/L (38-126) 03/25/24 10:13
EKG 03/25/2024: Normal sinus rhythm.
Impression/Plan
-
IMPRESSION/PLAN:
1. Palpitations with associated dyspnea: The patient will undergo an EP study with Dr. Paige Moran on 04/08/2024. The benefits and risks of the procedure have been explained to the patient. The patient understands these risks and wishes to
proceed.
[2024-04-25] VITALS (13 sets, daily range): BP systolic 99–133; BP diastolic 71–96
--- NOTE | 2024-04-25 11:24 | ITS.CL.ABL ---
[facility] - Ablation
Ablation
Procedure Report:
Supra-Ventricular Tachycardia Ablation:
Mr. Eng is a very pleasant�39 yr old gentleman with medical history significant for palpitations and was diagnosed with supra-ventricular tachycardia (SVT) with EKG showed short RP tachycardia. He is also noted to have atrial tachycardia, PACs
and PVCs. He presented today to the EP lab for electrophysiology (EP) study of the heart and possible ablation of the SVT.
Date of Procedure:
04/25/2024
�
Indications: Supra-Ventricular Tachycardia (SVT)
�
Pre-Operative Diagnosis: Supra-Ventricular Tachycardia (SVT)
�
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
�
Procedure Performed: EP study and SVT ablation x2
�
Performing Physician:
Paige Moran MD
��
Anesthesia:
See anesthesia records
�
Detailed Description of the Procedure:
Written informed consent was obtained from the patient after a full explanation of the risks and benefits of the procedure including the risks of sedation and anesthesia. The patient was brought to the electrophysiology laboratory in stable
condition in fasting state. Continuous electrocardiographic and hemodynamic monitoring was initiated.
The initial rhythm was normal sinus.
The procedure site was meticulously prepared with surgical scrub and allowed to dry with no pooling. Sterile draping was applied to cover the procedure site. The image intensifier was draped with sterile bag and positioned over the patient.
Sheath and Catheter Placement:
After infusion of local anesthetic, vascular access was obtained under ultrasound guidance and sheaths were placed over guide wire as detailed below.
�
Sheaths:
- � � � 6 Fr sheath in right femoral vein
- � � � 7 Fr sheath in right femoral vein
- � � � 6 Fr that was later upgraded to Agilis sheath in right femoral vein
�
Catheters:
- � � � 6Fr - Marion Quad-cath at RVa
- � � � 6Fr � QRD Quad - cath at HIS
- � � � Bard Decapolar catheter - at locations of CS
- � � � Biosense Robles force sensing irrigated 3.5 mm (Thermocool STSF) ablation catheter
�
�Following the sheaths placement, patient was given Heparin bolus and EP study was done.
Baseline intervals (milliseconds):
PP interval (baseline cycle length): 744
P wave duration:121
PA interval:162
QRS duration: 98
QT/QTc interval: 348/403
�
AH interval: 113
His duration: 18
HV interval: 47
Q onset to RVa: 0
��
Sinus Node Function:
HRA pacing showed adequate threshold. The sinus node functions are within acceptable normal range. There were frequent non-sustained atrial tachycardia noted with HRA pacing. The CS pacing was done to study the AV node.
�
Atrioventricular Helena Function:
Atrial stimulation with incremental pacing intervals was performed from the high right atrium (HRA) and right ventricular apex (RVa) and antegrade and retrograde atrioventricular (AV) block cycle lengths were determined. The antegrade AV Wenckebach
was noted at 380 msec.
�
Programmed atrial stimulation was performed with drive train of 600 msec followed by a single atrial extra-stimulus and the AV helena and the atrial ERPs were determined. The AV helena ERP was 600/280 msec and the atrial ERP was 240msec.
There was normal decremental conduction noted through the AV node. The programmed stimuli showed a clear AH jump.
The fast pathway ERP was 600/310 ms and the slow pathway ERP was <600/290 ms.
Ventricular stimulation showed normal retrograde conduction via the AV node. The retrograde Wenckebach was 600msec.
�
Ventricular Function:
Single ventricular extrastimuli showed V conduction was normal with below 500 msec ventricular conduction. The ventricular electrical functions are within acceptable range.
Para-Hisian Pacing:
The HIS cahether were paced at high amplitude (20mA) and gradually amplitude decreased. The His capture was noted at high voltage and the VA conduction time was 164 msec. The lower voltage had RV capture and the VA time was 219 msec. This is deemed
helena response and no septal accessory pathway was noted.
�
Arrhythmia induction:
Arrhythmia induction was done with programmed stimulation as well as with burst pacing from CS and HRA.
Programmed stimulation did not induce any arrhythmia.� Decision was made to start Isopril stimulation challenge.
Isuprel stimulation test:
With slow atrial conduction and delayed intervals noted, decision was made to use the Isuprel challenge. Isuprel infusion was initiated. The heart rate and blood pressure was monitored. Isuprel was gradually increased from 1 to 3 mcg/min. There was
adequate tachycardia response noted at 3 mcg/min dose and EP study and SVT induction was again attempted.
Isuprel was discontinued.
Atrioventricular helena reentry tachycardia:
Programmed atrial stimulation followed by atrial burst pacing around AV Wenckebach cycle length showed slow pathway conduction via the AV node with occasional echo beats without any sustained SVT. There was clear two pathway AV helena conduction
noted. There was EKG tracings consistent with AVNRT already present. This was deemed adequate to diagnose AVNRT.
Focal atrial tachycardia: Multiple different foci from the red.
Patient also has frequent atrial tachycardia noted. The tachycardia was short-lived and was not able to be drained. Due to the nonsustained nature of the tachycardia, the mapping of the tachycardia was also difficult. The atrial tachycardia was of
variable cycle lengths going as much as 550 ms to as early as 220 ms. �The attempted mapping of the tachycardia shows that the tachycardia is coming from the red terminalis with different cycle length of the tachycardia coming from different
occasions from the red terminalis.
SVT Arrhythmia Induction:
The tachycardia was easily inducible with atrial spetal pacing at 350 msec.
Electroanatomic 3D Mapping (EAM) and Ablation:
The HRA was removed and was upgraded to Agilis sheath for ablation catheter. EAM and radiofrequency ablation was performed using a ThermoAdap.tv ST SF radiofrequency ablation catheter. 3D mapping was performed with Carto3 software. Cardiac anatomy as
established. His cloud was established. The triangle of [place] was marked with ablation catheter. There was a narrow area between the anterior border of the CS and the tricuspid annulus.
AVNRT ablation:
A slow pathway AVNRT ablation was pursued. Radiofrequency ablation lesions were applied using nonirrigated ablation catheter with 50 W at 60 degrees to the anatomic slow pathway area targeting spike and dome electrograms with > 1:7 A:V ratio just
below the His cloud. There were multitude of Junctional beats with 1:1 VA relationship noted. There was no non-conducted beat.
Focal atrial tachycardia ablation:
Then the lateral wall of the right atrium was mapped.� Phrenic nerve capture areas identified.� The red terminalis, focal atrial tachycardia were all coming from the locations from the lateral wall.� Areas of the phrenic nerve capture were
avoided and earliest signals of the atrial focal atrial tachycardia were ablated.
Post Ablation EP study:
The post ablation EP study showed normal AV conduction. The PA was 174msec; QRS was 82msec; AH was 118msec with HV of 45msec. There was no sign of AV block noted.
There was decremental conduction noted via the AV node. There was no jump present now after the ablation. There was no echo beats and despite aggressive measures there was no inducible tachycardia.
Procedure End
Following the completion of the EP study, catheters were removed. The sheaths were removed and hemostasis achieved with Figure of 8 and manual compression.
Recommendations:
��������� Likely discharge home today.
��������� No change in home medications.
�
Estimated Blood loss:
<5 cc
�
Specimens Removed:
None.
�
Implants / Devices:
None
�
Urine output:
None
�
Packs / Drains/ Tubes:
None
�
Instrument / Sponge Count Correct:
Yes
�
Complications of the Procedure:
None
�
Condition of Patient at Time of Transfer:
Hemodynamically stable with no neurological or vascular compromise.
Summary:
Electrophysiology study with induction of atrioventricular helena re-entrant tachycardia (AVNRT) and successful modification of slow pathway; ablation of the focal atrial tachycardia at the lateral wall of the right atrium from red terminalis foci
Possible other foci
== END 2024-04-25 15:38 | disposition home or self-care (01) ==
LOC: CATH 06:08
PROVIDERS: ATTENDING PHYSICIAN Internal Medicine Cardiovascular Disease; FAMILY PHYSICIAN Physician Assistant Medical
DX: I47.19 Other supraventricular tachycardia (principal); R06.00 Dyspnea, unspecified; R00.2 Palpitations; E78.5 Hyperlipidemia, unspecified; G90.A Postural orthostatic tachycardia syndrome [POTS]; M19.90 Unspecified osteoarthritis, unspecified site; M51.36 Other intervertebral disc degeneration, lumbar region; F41.9 Anxiety disorder, unspecified; A69.20 Lyme disease, unspecified
CPT/HCPCS: C1732; C1894; C1730; C1766; 36415; 76937; 80053; 85025; 93005; 93623; 93653; 93655

== ENCOUNTER 2024-04-25 19:43 | Emergency (ER) | payer OTHER, SELFPAY ==
[2024-04-25 19:45] VITALS: BP 139/90
[2024-04-25 20:06] VITALS: BMI 25.7
[2024-04-25 20:10] VITALS: BP 128/79
--- NOTE | 2024-04-25 20:17 | ED.GENMED ---
History of Present Illness
General
Chief Complaint: Heart Rate Problem
Source: patient and family
Time Seen by Provider: 04/25/24 20:04
Travel History
Have you had any contact with someone who has COVID-19?: No
Do you have any symptoms of coronavirus? Fever > 100 degrees, chills, cough, shortness of breath, sore throat, loss of taste or smell, muscle aches, or headache?: No
History of Present Illness
History of Present Illness:
This patient is a 39-year-old male presents emergency department with complaints of episodes of 'fluttering'. Patient has been suffering with this for some time, and had an ablation for presumed SVT today. He was deemed to be successful and the
patient went home at 4 PM. However, even before discharge she was having short-lived episodes of fluttering and since he got home he continues to have them. Sometimes is worse when he moves a certain way. The fluttering can last for seconds at a
time and then go away. No sustained palpitations. He denies dizziness, chest pain or pressure, dyspnea, back pain, headache, fever, chills, vomiting, or other complaints.
Past History
Past History
ED Past Medical History: Arrthythmia (palpitations/tachy) and Other (chronic muscle spasm from Lyme's disease)
ED Past Surgical History: Cardiac (ablation 05/05)
Social History
Tobacco: Non-smoker
Alcohol: Occasional
Drug: None
Living: with family
Employment: Employed
Family History
Family History: Other (Noncontributory)
Phy Exam
Physical Exam
Physical Exam:
GENERAL: Alert , in no apparent distress
EYE: pupils equal and reactive
NECK: Supple, no significant adenopathy.
ENT: o/p clr, mmm.
CARDIAC: Regular rate and rhythm .
LUNGS: Clear breath sounds bilaterally, no acute respiratory distress, no wheezes/rales/rhonchi
ABDOMEN: Soft, without focal tenderness, no r/g, no cvat
NEUROLOGICAL: Alert and oriented, no focal neuro deficits
SKIN: Warm and dry, skin intact.
MUSCULOSKELETAL: No edema, well perfused.
PSYCH: Normal and appropriate interaction.
Course
Orders/Labs/Results
Orders:
Orders
04/25/24 19:51
ECG [Electrocardiogram (*1)] Urgent
Reason for Study: Palpitations
EKG- Treatment ONCE
04/25/24 20:24
Lorazepam [Ativan] 1 mg IV NOW STA
04/25/24 20:53
Lorazepam [Ativan] 1 mg PO NOW STA
Vital Signs
Initial and Last Documented VS:
Initial Vital Signs
Temp Pulse Resp BP Pulse Ox
98.1 F 88 16 139/90 100
04/25/24 19:45 04/25/24 19:45 04/25/24 19:45 04/25/24 19:45 04/25/24 19:45
Last Documented Vital Signs
Temp Pulse Resp BP Pulse Ox
98.1 F 77 16 115/78 99
04/25/24 19:45 04/25/24 21:31 04/25/24 21:31 04/25/24 21:00 04/25/24 21:31
*Critical Care Note
Total Time (30-74mins, 75-104mins- exclusive of procedures): Not Applicable
Update Note
Update Note:
Patient presents to the Emergency Department with palpitations
Number and Complexity of Problems Addressed at the Encounter
� Chronic conditions affecting care:
� Acute Exacerbation and/or Progression of Chronic Illness:
� Differential Diagnosis includes:but not limited to svt, afib, aflutter, sinus tach, anxiety, etc.
Amount and/or Complexity of Data to be Reviewed and Analyzed
� I performed an independent evaluation of and my interpretation is:
EKG:read by me, nsr with sinus arrhythmia, no ischemia
CT:
Xrays:
Laboratory Studies:
Other:
� Review of other/old records reveals:
� Clinical information was obtained by an independent historian:
� Prescriptions/Medications Considered but not given:
� Further testing considered but not performed:
Risk of Complications and/or Morbidity or Mortality of Patient Management
� Social determinants of health affecting care:
� Discussion with other providers (PCP, Hospitalists, Consultants, etc):
� Escalation of care including admission/observation vs risk of discharge considered:case d/w dr kovacs, aware of hx, phys etc. Recommends ativan.
10:08 PM several hour observation here, no arrhythmias of concern, no chest pain, patient remains very stable. He is very anxious, and I discussed with him and his mother who is at bedside my concerns about this and encouraged him to seek treatment
for this in addition to his physical symptoms. I do not necessarily endorse that all of his symptoms are from anxiety alone, but I do suspect that it could be contributing to the severity of his symptoms and discussed with him risks of dependency
with prolonged benzo use. Patient denies SI or HI. Discussed with him importance of follow-up and reasons to return to the ER
ED Attending Note
-
Portions of this chart may have been created with voice recognition software.� Occasional wrong word or��sound alike� substitutions may have occurred due to the inherent limitations of voice recognition software.
Discharge Plan
Departure
Patient Disposition: Home (Routine Discharge)
Date of Disposition: 04/25/24
Time of Disposition: 22:07
Patient with high blood pressure during this ER visit?: Yes
Condition: Good
Discharge Problem:
Heart palpitations
Instructions: Palpitations (DC), BLOOD PRESSURE
Prescriptions:
No Action
propranolol 20 mg Tablet
40 mg PO QPM
Curcumin 95 % Powder
1 ea MISCELLANEOUS DAILY
vitamin D3-vitamin K2 125 mcg (5,000 unit)-100 mcg Capsule
0.5 cap PO DAILY
Boswellia kelsi-turmeric xt 500 mg Capsule
1 cap PO DAILY
clonazepam [Klonopin] 0.5 mg Tablet
0.5 mg PO DAILY
Referrals:
Lydia Parker DO [Family Provider] -
Activity Restrictions/Additional Instructions:
PLEASE CONTACT YOUR REHABILITATION NURSE FOR FURTHER SYMPTOMS OR CONCERNS. IF YOU DEVELOP CHEST PAIN, TROUBLE BREATHING, VOMITING, OR OTHER WORRISOME SIGNS, GO TO THE ER IMMEDIATELY!
Interventions
Interventions:
*Risk Screen - Suicide Last Done: 04/25/24 20:15
*General Assessment Last Done: 04/25/24 20:07
*Neglect/Abuse Screening Last Done: 04/25/24 20:15
ED- Cardiac Assessment Last Done: 04/25/24 20:13
Discharge Date and Time
Print Language: WELSH
[2024-04-25 21:00] VITALS: BP 115/78
[2024-04-25] MEDS: ATIVAN 1 MG PO (21:07)
[2024-04-25 22:00] VITALS: BP 122/90
== END 2024-04-25 22:29 | disposition home or self-care (01) ==
LOC: EMR 19:43
PROVIDERS: EMERGENCY PHYSICIAN Emergency Medicine; FAMILY PHYSICIAN Family Medicine
DX: R00.2 Palpitations (principal); R03.0 Elevated blood-pressure reading, without diagnosis of hypertension; F41.9 Anxiety disorder, unspecified
CPT/HCPCS: 99283; 93005

== ENCOUNTER → 2024-05-01 16:06 | Outpatient (REF) | payer OTHER, SELFPAY ==
[2024-04-25 06:17] VITALS: BP 119/96
== END ==
LOC: HWRCS 16:06
PROVIDERS: ATTENDING PHYSICIAN Internal Medicine Cardiovascular Disease; FAMILY PHYSICIAN Family Medicine
DX: R07.9 Chest pain, unspecified (principal)
CPT/HCPCS: 93306

== ENCOUNTER → 2024-05-09 10:25 | Outpatient (REF) | payer OTHER, SELFPAY | LOC: RCS 10:25 | PROVIDERS: ATTENDING PHYSICIAN Family Medicine | DX: Z86.79 Personal history of other diseases of the circulatory system (principal) | CPT/HCPCS: 93225; 93226 ==

== ENCOUNTER 2024-05-22 19:53 | Emergency (ER) | payer OTHER, SELFPAY ==
[2024-05-22 20:04] VITALS: BP 110/77
[2024-05-22 20:06] VITALS: BP 126/91
[2024-05-22 20:22] LABS: % Basophils 1.1 % (0-2); % Eosinophils 6.4 % (0-6); % Immature Granulocytes 0.6 % (0-0.5); % Lymphocytes 41.8 % (20.5-51.1); % Neutrophils 42.1 % (42.2-75.2); Absolute Basophils 0.1 10^3/uL (0-0.2); Absolute Eosinophils 0.5 10^3/uL (0-0.7); Absolute Immature Granulocytes 0.1 10^3/uL (0-0.05); Absolute Lymphocytes 3.3 10^3/uL (1.2-3.4); Absolute Monocytes 0.6 10^3/uL (0.1-0.6); Absolute Neutrophils 3.3 10^3/uL (1.4-6.5); Hematocrit 43.3 % (39.0-52.0); Hemoglobin 16.1 g/dL (13.0-18.0); Mean Corp Hgb Conc. 37.2 g/dL (33.0-37.0); Mean Corpuscular Hgb 29.6 pg (27.0-31.0); Mean Corpuscular Volume 79.6 fL (80.0-94.0); Mean Platelet Volume 11.6 fL (7.4-10.4); Nucleated Red Blood Cells % 0 % (-); Platelet Count 213 10^3/uL (130-400); Red Blood Cell Count 5.44 10^6/uL (4.70-6.10); Red Cell Dist. Width 12.3 % (11.5-14.5); White Blood Cell Count 7.9 10^3/uL (4.8-10.8)
[2024-05-22 21:01] LABS: ALT (SGPT) 12 U/L (0-50); AST (SGOT) 18 U/L (17-59); Albumin 4.6 g/dl (3.5-5.0); Alkaline Phosphatase 50 U/L (38-126); Blood Urea Nitrogen 12 mg/dl (9-20); Calcium 10.1 mg/dl (8.4-10.2); Carbon Dioxide 27 mmol/L (22-30); Chloride 103 mmol/L (98-107); Glucose 112 mg/dl (70-99); Lipase 228 U/L (23-300); Potassium 3.7 mmol/L (3.5-5.1); Sodium 136 mmol/L (135-145); Total Bilirubin 1.2 mg/dl (0.2-1.3); Total Protein 6.9 g/dl (6.3-8.2); eGFR > 60.00
[2024-05-22 21:03] VITALS: BMI 23.4
[2024-05-22 21:07] VITALS: BP 119/92
[2024-05-22 22:00] VITALS: BP 109/79
[2024-05-22] MEDS: OMNIPAQUE 50 ML PO (22:55)
[2024-05-22 23:00] VITALS: BP 124/86
--- NOTE | 2024-05-22 23:32 | ED.GENMED ---
History of Present Illness
General
Chief Complaint: Abdominal Symptoms
Source: patient
Exam Limitations: none
Time Seen by Provider: 05/22/24 21:33
History of Present Illness
History of Present Illness:
This is a 39-year-old male who presents with about a week of off-and-on abdominal pain. He reports its both on the right and left side in the epigastric area. He states sometimes it feels like a tightness and bandlike pain around his abdomen. He
is scheduled to see GI in October. Patient denies vomiting or diarrhea. Does report weight loss. Patient recently had ablation for palpitations. He still has had fast heart rates at times and they are looking at him for possible POTS.
Past History
Past History
ED Past Medical History: Arrthythmia (palpitations/tachy) and Other (chronic muscle spasm from Lyme's disease)
ED Past Surgical History: Cardiac (ablation 05/05)
Social History
Tobacco: Non-smoker
Alcohol: Occasional
Drug: None
Personal:
Living: with family
Employment: Employed
Family History
Family History: Other (Noncontributory)
Phy Exam
Physical Exam
Physical Exam:
CONSTITUTIONAL Patient alert and oriented to person, place and time. Well-appearing. Vital signs reviewed.
HEAD atraumatic, normocephalic.
EYES eyelids normal to inspection, Pupils equally round and reactive to light, Extraocular muscles intact, Conjunctiva normal, Sclera normal.
NECK normal range of motion, Trachea midline, no jugular venous distention.
RESPIRATORY CHEST No respiratory distress noted, Chest expansion equal, Bilateral breath sounds clear.
CARDIOVASCULAR regular rate and rhythm, Heart sounds normal.
ABDOMEN abdomen nontender, Bowel sounds normal. No distention.
BACK normal inspection, no obvious deformities
UPPER EXTREMITY range of motion normal, Motor strength normal, no cyanosis, no edema.
LOWER EXTREMITY range of motion normal, Motor strength normal, no cyanosis, no edema.
NEURO Speech normal, No focal motor deficits, Bergen coma scale 15, Memory normal, Cranial Nerves intact to screening exam.
SKIN skin warm, dry, and normal in color.
PSYCHIATRIC patient oriented to person place and time, Normal affect.
Course
Orders/Labs/Results
Orders:
Orders
05/22/24 19:56
ECG [Electrocardiogram (*1)] Urgent
Reason for Study: Chest Pain
EKG- Treatment ONCE
05/22/24 20:15
Complete Blood Count/With Diff Urgent
Comprehensive Metabolic Panel Urgent
Lipase Urgent
05/22/24 22:46
Iohexol [Omnipaque] See Protocol PO NOW STA
05/23/24 01:00
CT Abd/pel W Iv And Oral Contr Urgent
Reason For Exam: diffuse abd pain
Abnormal Lab Results
05/22/24
20:15
MCV 79.6 L fL
(80.0-94.0)
MCHC 37.2 H g/dL
(33.0-37.0)
MPV 11.6 H fL
(7.4-10.4)
Abs Immat Gran (auto) 0.1 H 10^3/uL
(0-0.05)
Immature Gran % 0.6 H %
(0-0.5)
Neutrophils % 42.1 L %
(42.2-75.2)
Eosinophils % 6.4 H %
(0-6)
Glucose 112 H mg/dl
(70-99)
05/22/24 20:15
05/22/24 20:15
Vital Signs
Initial and Last Documented VS:
Initial Vital Signs
Temp Pulse Resp BP Pulse Ox
98.2 F 112 20 110/77 97
05/22/24 20:04 05/22/24 20:04 05/22/24 20:04 05/22/24 20:04 05/22/24 20:04
Last Documented Vital Signs
Temp Pulse Resp BP Pulse Ox
97.4 F 70 14 119/92 100
05/22/24 20:06 05/22/24 21:07 05/22/24 21:07 05/22/24 21:07 05/22/24 21:03
MDM/Problems Addressed
MDM/Problems Addressed:
Abdominal pain, anxiety
*Radiology
Radiology exam reviewed: preliminary read by ED provider (No obvious free air) and radiology read reviewed
*Pulse Oximetry
Patient hypoxic: no
*Critical Care Note
Total Time (30-74mins, 75-104mins- exclusive of procedures): Not Applicable
Data Reviewed
Review of Other/Old Records Reveals: Labs (Prior labs reviewed)
Source: patient and family
Further Testing Considered But Not Given:
Consider obstruction series but no clinical concern for obstruction we will proceed with CT
Patient Management
Escalation/DeEscalation of care consider admission/obs:
CT grossly unremarkable. Has GI follow-up planned for few months from now but will advise outpatient PCP follow-up. Also patient was given prescription for PPI by PCP. Advised him to initiate PPI
ED Attending Note
-
Portions of this chart may have been created with voice recognition software.� Occasional wrong word or��sound alike� substitutions may have occurred due to the inherent limitations of voice recognition software.
Discharge Plan
Departure
Patient Disposition: Home (Routine Discharge)
Date of Disposition: 05/23/24
Time of Disposition: 02:16
Patient with high blood pressure during this ER visit?: No
Discharge Problem:
Abdominal pain
Instructions: Abdominal Pain
Prescriptions:
No Action
propranolol 20 mg Tablet
40 mg PO QPM
Curcumin 95 % Powder
1 ea MISCELLANEOUS DAILY
vitamin D3-vitamin K2 125 mcg (5,000 unit)-100 mcg Capsule
0.5 cap PO DAILY
Boswellia kelsi-turmeric xt 500 mg Capsule
1 cap PO DAILY
clonazepam [Klonopin] 0.5 mg Tablet
0.5 mg PO DAILY
Referrals:
Marilynn Lugo DO [Family Provider] -
Activity Restrictions/Additional Instructions:
Please start your omeprazole 30 minutes prior to breakfast every morning. Please see your doctor in the next 3 to 5 days for follow-up and reevaluation. Follow-up with gastroenterology as planned. Return immediately for abdominal pain that is
worsening, fevers, intractable vomiting or any other concerns.
Interventions
Interventions:
*Risk Screen - Suicide Last Done: 05/22/24 20:06
*General Assessment Last Done: 05/22/24 20:06
*Neglect/Abuse Screening Last Done: 05/22/24 20:06
ED- Fall Risk Assessment Last Done: 05/22/24 21:03
*ED COVID-19 Vaccine History Last Done: 05/22/24 20:06
AK-Nyonbk-Meqrftwqsh Assessment Last Done: 05/22/24 21:03
Discharge Date and Time
Print Language: YAKUT
[2024-05-23 02:28] VITALS: BP 105/71
== END 2024-05-23 02:38 | disposition home or self-care (01) ==
LOC: EMR 19:53
PROVIDERS: EMERGENCY PHYSICIAN Emergency Medicine; FAMILY PHYSICIAN Family Medicine
DX: R10.9 Unspecified abdominal pain (principal); F41.9 Anxiety disorder, unspecified
CPT/HCPCS: 99284; 74177; 80053; 83690; 85025; 93005; Q9967

== ENCOUNTER → 2024-10-29 08:19 | Outpatient (REF) | payer SELFPAY | LOC: HWRAD 08:19 | PROVIDERS: ATTENDING PHYSICIAN Internal Medicine Cardiovascular Disease; FAMILY PHYSICIAN Student in an Organized Health Care Education/Training Program | DX: R07.9 Chest pain, unspecified (principal) | CPT/HCPCS: 75571 ==

== ENCOUNTER 2025-07-25 18:08 | Emergency (ER) | payer OTHER, SELFPAY ==
[2025-07-25 18:09] VITALS: BP 150/93
[2025-07-25 18:31] LABS: Hematocrit 45.4 % (39.0-52.0); Hemoglobin 16.4 g/dL (13.0-18.0); Mean Corp Hgb Conc. 36.1 g/dL (33.0-37.0); Mean Corpuscular Volume 80.2 fL (80.0-94.0); Nucleated Red Blood Cells % 0 % (-); Platelet Count 171 10^3/uL (130-400); Red Cell Dist. Width 12.0 % (11.5-14.5)
[2025-07-25 18:47] LABS: ALT (SGPT) 33 U/L (0-50); AST (SGOT) 22 U/L (17-59); Albumin 4.5 g/dl (3.5-5.0); Alkaline Phosphatase 52 U/L (38-126); Blood Urea Nitrogen 9 mg/dl (9-20); Calcium 9.7 mg/dl (8.4-10.2); Carbon Dioxide 26 mmol/L (22-30); Chloride 100 mmol/L (98-107); Glucose 105 mg/dl (70-99); Potassium 4.6 mmol/L (3.5-5.1); Sodium 134 mmol/L (135-145); Total Protein 7.3 g/dl (6.3-8.2); eGFR > 60.00
[2025-07-25 18:48] LABS: COVID-19 Antigen Negative (Negative)
[2025-07-25 20:00] VITALS: BP 128/89
[2025-07-25] MEDS: ZOFRAN 4 MG IV (20:38)
[2025-07-25] MEDS: NSS 1000 IV (20:38)
--- NOTE | 2025-07-25 20:58 | ED.GENMED ---
History of Present Illness
General
Chief Complaint: Fever
Source: patient and family
Exam Limitations: none
Time Seen by Provider: 07/25/25 19:45
Nursing documentation reviewed up to this point in time: agreed with
History of Present Illness
History of Present Illness:
40-year-old male past ministry of POTS previous SVT syndrome Lyme disease presenting to the emergency department today with concerns of 4 days of fatigue fever at night loose bowel movements palpitations nausea. Also has had some bodyaches. Denies
any specific upper respiratory symptoms no vomiting. No abdominal pain.
Past History
Past History
ED Past Medical History: Arrthythmia (palpitations/tachy) and Other (chronic muscle spasm from Lyme's disease)
ED Past Surgical History: Cardiac (ablation 05/05)
Social History
Tobacco: Non-smoker
Alcohol: Occasional
Drug: None
Personal:
Living: with family
Employment: Employed
Family History
Family History: Other (Noncontributory)
Review of Systems
Review of Systems
Allergies reviewed?: Yes
All Other Systems: ROS reviewed and negative except as documented in HPI and ROS
Phy Exam
Physical Exam
Physical Exam:
GENERAL: Alert , in no apparent distress
EYE: pupils equal and reactive
NECK: Supple, no significant adenopathy.
ENT: o/p clr, mmm.
CARDIAC: Regular rate and rhythm .
LUNGS: Clear breath sounds bilaterally, no acute respiratory distress, no wheezes/rales/rhonchi
ABDOMEN: Soft, without focal tenderness, no r/g, no cvat
NEUROLOGICAL: Alert and oriented, no focal neuro deficits
SKIN: Warm and dry, skin intact.
MUSCULOSKELETAL: No edema, well perfused.
PSYCH: Normal and appropriate interaction.
Course
Orders/Labs/Results
Orders:
Orders
07/25/25 18:12
ECG [Electrocardiogram (*1)] Urgent
Reason for Study: Palpitations
EKG- Treatment ONCE
07/25/25 18:23
COVID-19 Antigen Urgent
Source: Nasal Swab
Complete Blood Count/With Diff Urgent
Comprehensive Metabolic Panel Urgent
Monotest Urgent
Comment: ADD ON
Influenza A+B Rapid Molecular Urgent
ELIZABETH Source: Nasal Swab
Specimen Description:
07/25/25 19:48
Add On- LAB Urgent
Tests Added?: monotest
07/25/25 20:19
0.9% Sodium Chloride 1000 ml [Nss] 1,000 ml IV BOLUS
Ondansetron Injectable [Zofran] 4 mg IV NOW STA
07/25/25 20:57
Chest [CR Chest - 2 Views ] Urgent
Comment:
Reason For Exam: fever, left cp
Abnormal Lab Results
07/25/25
18:23
MPV 11.3 H fL
(7.4-10.4)
Abs Immat Gran (auto) 0.1 H 10^3/uL
(0-0.05)
Absolute Lymphs (auto) 1.0 L 10^3/uL
(1.2-3.4)
Immature Gran % 0.8 H %
(0-0.5)
Lymphocytes % 16.6 L %
(20.5-51.1)
Monocytes % 10.1 H %
(1.7-9.3)
Sodium 134 L mmol/L
(135-145)
Glucose 105 H mg/dl
(70-99)
07/25/25 18:23
07/25/25 18:23
Vital Signs
Initial and Last Documented VS:
Initial Vital Signs
Temp Pulse Resp BP Pulse Ox
98.8 F 124 20 150/93 97
07/25/25 18:09 07/25/25 18:09 07/25/25 18:09 07/25/25 18:09 07/25/25 18:09
Last Documented Vital Signs
Temp Pulse Resp BP Pulse Ox
98.8 F 91 17 128/89 98
07/25/25 18:09 07/25/25 20:00 07/25/25 20:00 07/25/25 20:00 07/25/25 20:59
MDM/Problems Addressed
MDM/Problems Addressed:
40-year-old male presenting to the emergency department today with concerns of 4 days of fever at night body aches lightheadedness diarrhea fatigue. On arrival tachycardic but improving without specific treatment. Otherwise vital signs are normal.
Labs without emergent findings. Patient in no distress throughout ER stay vital signs are normal. Patient advised for outpatient management close primary care follow-up and return precautions were given.
*Pulse Oximetry
SaO2: 98
Oxygen Mode of Delivery: Room air
Patient hypoxic: no (98)
*Critical Care Note
Total Time (30-74mins, 75-104mins- exclusive of procedures): Not Applicable
ED Attending Note
-
Portions of this chart may have been created with voice recognition software.� Occasional wrong word or��sound alike� substitutions may have occurred due to the inherent limitations of voice recognition software.
Discharge Plan
Departure
Patient Disposition: Home (Routine Discharge)
Date of Disposition: 07/25/25
Time of Disposition: 21:39
Patient with high blood pressure during this ER visit?: No
Condition: Good
Covid-19: Not Applicable
Discharge Problem:
Diarrhea, Body aches, Palpitations
Instructions: Viral Syndrome (DC)
Prescriptions:
New
ondansetron 4 mg tablet,disintegrating
4 mg PO Q6H PRN (Reason: nausea and vomiting) Qty: 7 0RF
No Action
propranolol 20 mg Tablet
40 mg PO QPM
Curcumin 95 % Powder
1 ea MISCELLANEOUS DAILY
vitamin D3-vitamin K2 125 mcg (5,000 unit)-100 mcg Capsule
0.5 cap PO DAILY
Boswellia kelsi-turmeric xt 500 mg Capsule
1 cap PO DAILY
clonazepam [Klonopin] 0.5 mg Tablet
0.5 mg PO DAILY
Referrals:
Yvonne Rivera MD [Family Provider, Family Practice]
Activity Restrictions/Additional Instructions:
You came to the emergency department today with multiple symptoms. Here you have a reassuring assessment without any emergent findings on your workup. Please try to stay hydrated and take the Zofran as needed. Please rest over the next few days
and follow-up closely with your primary care doctor. Return for any worsening, new or concerning symptoms.
Discharge Date and Time
Print Language: MALIAN
[2025-07-25 21:00] VITALS: BP 112/76
== END 2025-07-25 21:57 | disposition home or self-care (01) ==
LOC: EMR 18:08
PROVIDERS: Emergency Medicine; EMERGENCY PHYSICIAN Emergency Medicine; FAMILY PHYSICIAN Student in an Organized Health Care Education/Training Program
DX: R19.7 Diarrhea, unspecified (principal); R00.2 Palpitations; G90.A Postural orthostatic tachycardia syndrome [POTS]; A69.22 Other neurologic disorders in Lyme disease; M62.838 Other muscle spasm; Z86.79 Personal history of other diseases of the circulatory system
CPT/HCPCS: 99284; 96374; 96361; 71046; 80053; 85025; 86308; 87502; 87811; 93005

== ENCOUNTER → 2025-07-31 09:05 | Outpatient (REF) | payer SELFPAY | LOC: HWRAD 09:05 | PROVIDERS: ATTENDING PHYSICIAN Student in an Organized Health Care Education/Training Program | DX: G90.A Postural orthostatic tachycardia syndrome [POTS] (principal) | CPT/HCPCS: 93880 ==

== ENCOUNTER → 2025-10-29 08:32 | Outpatient (REF) | payer OTHER, SELFPAY | LOC: HWRCS 08:32 | PROVIDERS: ATTENDING PHYSICIAN Internal Medicine Cardiovascular Disease; FAMILY PHYSICIAN Student in an Organized Health Care Education/Training Program | DX: R00.2 Palpitations (principal) | CPT/HCPCS: 93306 ==